=== PATIENT | female | born 1995 | race Caucasian/White ===

== ENCOUNTER 2022-06-25 03:50 | Inpatient (IN) ==
[2022-06-25 04:45] LABS: Basophils # 0.1 K/mcL (0.0-0.2); Basophils % 0.4 %; Eosinophils # 0.6 K/mcL (0.0-0.6); Eosinophils % 3.5 %; Hematocrit 43.7 % (35.3-44.9); Hemoglobin 14.1 g/dL (11.5-15.4); Immature Granulocytes % 0.8 % (0-4); Lymphocytes % 32.6 %; Mean Corpuscular HGB Conc 32.3 g/dL (31.6-35.5); Mean Corpuscular Hemoglobin 25.8 pg (28.0-33.3); Mean Corpuscular Volume 79.9 fL (83.0-100.0); Mean Platelet Volume 10.9 fL (9.4-12.4); Monocytes # 0.9 K/mcL (0.0-1.3); Monocytes % 5.1 %; Neutrophils # 10.5 K/mcL (1.6-8.9); Platelet Count 447 K/mcL (140-400); Red Blood Count 5.47 M/mcL (3.82-4.97); Segmented Neutrophils % 57.6 %; White Blood Count 18.3 K/mcL (4.3-11.1)
[2022-06-25 04:46] LABS: Bacteria,Urine Few per hpf (None-Few); Bilirubin,Urine Negative (Negative); Blood,Urine Trace (Negative); Clarity,Urine Clear (Clear); Color,Urine Light-Yellow (Yellow); Glucose,Urine (UA) Normal (Normal); Ketones,Urine Negative (Negative); Leukocyte Esterase,Urine Negative (Negative); Mucus,Urine Few per lpf (None-Few); Nitrite,Urine Negative (Negative); PH,Urine 5.5 pH Units (5.0-8.0); Protein,Urine Negative (Neg-Trace); Specific Gravity,Urine 1.018 (1.010-1.025); Squamous Epithelial Cell,Urine Few per hpf (None-Few); Urobilinogen,Urine Normal (Normal); WBC,Urine 0-3 per hpf (0-3)
[2022-06-25 04:57] LABS: Amphetamine Screen,Urine Negative ng/mL (Cutoff=1000); Barbiturate Screen,Urine Negative ng/mL (Cutoff=200); Benzodiazepines Screen,Urine Negative ng/mL (Cutoff=200); Cannabinoid Screen,Urine Positive ng/mL (Cutoff = 50); Cocaine Screen,Urine Negative ng/mL (Cutoff= 300); Opiate Screen,Urine Negative ng/mL (Cutoff=300); Phencyclidine Screen,Urine Negative ng/mL (Cutoff=25)
[2022-06-25 05:03] LABS: Acetaminophen < 10 mcg/mL (10-20); BUN/Creatinine Ratio 10 (6-26); Blood Urea Nitrogen 8 mg/dL (6-20); Calcium 8.9 mg/dL (8.6-10.3); Carbon Dioxide 21 mEq/L (23-29); Chloride 108 mEq/L (98-107); Ethanol 178 mg/dL (Less than 10); Glucose 135 mg/dL (70-105); Osmolality,Calculated 288 (280-300); Potassium 3.8 mEq/L (3.5-5.1); Salicylate < 2.5 mg/dL (15.0-30.0); Sodium 139 mEq/L (136-145)
[2022-06-25 15:05] LABS: Influenza A PCR Negative (Negative); Influenza B PCR Negative (Negative); Resp. Syncytial Virus PCR Negative (Negative)
[2022-06-25 15:11] LABS: SARS-CoV-2 by PCR (In House) Negative (Negative)
[2022-06-25] MEDS ORDERED: *HR* LORazepam 1 MG TABLET PO PRN (15:18)
[2022-06-25] MEDS ORDERED: Ibuprofen 400 MG TABLET PO PRN (15:18)
[2022-06-25] MEDS ORDERED: *HR* LORazepam 2 MG/ML VIAL IM PRN (15:18)
[2022-06-25] MEDS ORDERED: Haloperidol Lactate 5 MG/ML VIAL IM PRN (15:18)
[2022-06-25] MEDS ORDERED: haloperidoL 5 MG TABLET PO PRN (15:18)
[2022-06-25] MEDS ORDERED: Acetaminophen 325 MG TABLET PO PRN (15:18)
[2022-06-25] MEDS: Cefdinir 300 MG CAPSULE PO SCH (20:33)
[2022-06-25] MEDS: hydrOXYzine pamoate 25 MG CAPSULE PO PRN (20:33)
[2022-06-25] MEDS: traZODone 50 MG TABLET PO PRN ×2 (20:34→22:02)
[2022-06-25] MEDS: Nicotine 21 MG PATCH.TD24 TD SCH (22:59)
[2022-06-26] MEDS: Cefdinir 300 MG CAPSULE PO SCH ×2 (09:26→20:10)
[2022-06-26] MEDS: Nicotine 21 MG PATCH.TD24 TD SCH (09:27)
[2022-06-26] MEDS ORDERED: Mag Hydrox/Al Hydrox/Simeth 30 ML UDC PO PRN (12:25)
[2022-06-26] MEDS ORDERED: MOM Conc 10 ML UD.LIQ PO PRN (12:25)
[2022-06-26] MEDS ORDERED: QUEtiapine Fumarate 25 MG TABLET PO PRN (12:33)
[2022-06-26] MEDS: BuPROPion XL (24 HR) 150 MG TABLET PO SCH (15:23)
[2022-06-26] MEDS: hydrOXYzine pamoate 25 MG CAPSULE PO PRN (20:10)
[2022-06-27] MEDS: Nicotine 21 MG PATCH.TD24 TD SCH (08:23)
[2022-06-27] MEDS: Cefdinir 300 MG CAPSULE PO SCH (08:23)
[2022-06-27] MEDS: BuPROPion XL (24 HR) 150 MG TABLET PO SCH (08:23)
[2022-06-27 10:02] VITALS: BP 115/80; PULSE 112; TEMP 97.9; O2SAT 98
== END 2022-06-27 14:45 | disposition home or self-care (01) | DRG 885 ==
LOC: EMEROOARM 03:50 → 1ANU 15:33
PROVIDERS: ADMIT Psychiatry & Neurology Psychiatry; ATTEND Psychiatry & Neurology Psychiatry